=== PATIENT | female | born 1950 | race Hispanic/Latino ===

== ENCOUNTER 2023-02-11 07:04 | Inpatient (IN) | payer MEDICARE, OTHER ==
[~2023-02-11] VITALS: Ht 142.2 cm; Wt 63.5 kg
[~2023-02-11 07:04] MED LIST: AUGMENTIN 500-1 EACH PO; BACLOFEN10 MG PO; NAPROXEN250 MG PO
[2023-02-11] MEDS ORDERED: SODIUM CHLORIDE 0.9% 1000ML 1,000 ML IV STA ×2 (07:26)
[2023-02-11] MEDS ORDERED: ONDANSETRON HCL INJ 2MG/ML 2ML 2 MG/ML VIAL IV STA (07:26)
[2023-02-11] MEDS ORDERED: DIATRIZOATE MEGL/DIATRIZOA SOD 30 ML BTL PO ONE (07:47)
[2023-02-11 08:06] LABS: BASOPHILS % 0.2 % (0.0-1.0); EOSINOPHILS % 0.3 % (0.0-6.0); HEMATOCRIT 45.2 % (34.2-44.1); HEMOGLOBIN 15.6 g/dL (12.0-16.0); LYMPHOCYTES # (AUTO) 0.3 (1.0-3.2); LYMPHOCYTES % 1.9 % (18.0-39.1); MEAN CORPUSCULAR HEMOGLOBIN 30.3 pg (28-32); MEAN CORPUSCULAR HGB CONC 34.5 g/dL (31-35); MEAN CORPUSCULAR VOLUME 87.8 fL (81-99); MONOCYTES # (AUTO) 0.2 (0.2-0.8); MONOCYTES % 1.4 % (4.4-11.3); NEUTROPHILS # (AUTO) 14.5 (2.1-6.9); NEUTROPHILS % 95.9 % (38.7-80.0); PLATELET COUNT 327 x10e3/uL (140-360); RED BLOOD COUNT 5.15 x10e6/uL (3.6-5.1); WHITE BLOOD COUNT 15.07 x10e3/uL (4.8-10.8)
[2023-02-11 08:42] LABS: ALANINE AMINOTRANSFERASE 17 IU/L (0-55); ALBUMIN 4.6 g/dL (3.5-5.0); ALBUMIN/GLOBULIN RATIO 1.1 (0.8-2.0); ALKALINE PHOSPHATASE 113 IU/L (40-150); ANION GAP 15.9 mmol/L (8-16); BLOOD UREA NITROGEN 22 mg/dL (7-26); BUN/CREATININE RATIO 27 (6-25); CALCIUM 9.8 mg/dL (8.4-10.2); CARBON DIOXIDE 20 mmol/L (22-29); CHLORIDE 104 mmol/L (98-107); CREATININE, SERUM 0.82 mg/dL (0.57-1.11); GLUCOSE 174 mg/dL (74-118); MAGNESIUM 1.9 MG/DL (1.3-2.1); POTASSIUM 3.9 mmol/L (3.5-5.1); SODIUM 136 mmol/L (136-145)
[2023-02-11] MEDS ORDERED: PIPERACILLIN/TAZOBACTAM 3.375 GM VIAL ONE (08:44)
[2023-02-11 08:54] LABS: INR 0.92; PROTHROMBIN TIME 12.9 seconds (11.9-14.5)
[2023-02-11 08:55] LABS: PARTIAL THROMBOPLASTIN TIME 29.1 seconds (23.8-35.5)
[2023-02-11] MEDS ORDERED: IOPAMIDOL 370 MG/ML 100 ML INFUS..BTL INJ ONE (09:24)
[2023-02-11 10:21] LABS: CLARITY,URINE CLEAR (CLEAR); COLOR,URINE YELLOW (YELLOW)
[2023-02-11 10:29] LABS: KETONES,URINE NEGATIVE (NEGATIVE); LEUKOCYTE ESTERASE ,URINE TRACE (NEGATIVE); NITRITE,URINE NEGATIVE (NEGATIVE); PROTEIN,URINE DIPSTICK NEGATIVE (NEGATIVE); URINE UROBILINOGEN 0.2 mg/dL (0.2 - 1)
[2023-02-11 10:48] LABS: BACTERIA,URINE FEW /HPF; EPITHELIAL CELLS,URINE FEW /LPF; RBC,URINE 0-5 /HPF (0-5); WBC,URINE (MAN) 0-5 /HPF (0-5)
[2023-02-11] MEDS ORDERED: Morphine 2mg Syringe 2 MG/ML SYR IV PRN (11:00)
[2023-02-11] MEDS ORDERED: ONDANSETRON HCL INJ 2MG/ML 2ML 2 MG/ML VIAL IV PRN (11:00)
[2023-02-11] MEDS: ONDANSETRON HCL INJ 2MG/ML 2ML 2 MG/ML VIAL IV PRN (12:37)
[2023-02-11] MEDS: SODIUM CHLORIDE 0.9% 1000ML 1,000 ML IV SCH (12:38)
[2023-02-11] MEDS: METRONIDAZOLE 500MG/NS 100ML 100 ML IV SCH ×2 (12:39→17:33)
[2023-02-11 13:10] LABS: CREATINE KINASE 56 IU/L (29-168)
[2023-02-11 14:01] VITALS: BP 133/67; PULSE 89; RESP 18; TEMP 97.6; O2SAT 97
[2023-02-11 14:14] VITALS: BP 133/67; PULSE 89; RESP 18; TEMP 97.6; O2SAT 97
[2023-02-11 16:21] VITALS: BP 114/51; PULSE 87; RESP 20; TEMP 98.5; O2SAT 97
[2023-02-11] MEDS ORDERED: OS-CAL 500+D T1 EACH PO (16:31)
[2023-02-11] MEDS ORDERED: ATORVASTATIN CA10 MG PO (16:31)
[2023-02-11] MEDS ORDERED: ALENDRONATE SOD70 MG PO (16:31)
[2023-02-11 20:00] VITALS: BP 121/56; PULSE 91; RESP 20; TEMP 98.6; O2SAT 96
[2023-02-12] VITALS (8 sets, daily range): BP systolic 108–132; BP diastolic 52–70; PULSE 70–88; RESP 16–20; TEMP 97.9–98.7; O2SAT 96–98
[2023-02-12] MEDS: METRONIDAZOLE 500MG/NS 100ML 100 ML IV SCH ×4 (01:09→17:31)
[2023-02-12] MEDS: SODIUM CHLORIDE 0.9% 1000ML 1,000 ML IV SCH ×2 (01:09→04:10)
[2023-02-12 06:12] LABS: BASOPHILS % 0.2 % (0.0-1.0); EOSINOPHILS # (AUTO) 0.2 (0.0-0.4); EOSINOPHILS % 3.2 % (0.0-6.0); HEMATOCRIT 33.6 % (34.2-44.1); HEMOGLOBIN 11.1 g/dL (12.0-16.0); LYMPHOCYTES # (AUTO) 0.6 (1.0-3.2); LYMPHOCYTES % 12.7 % (18.0-39.1); MEAN CORPUSCULAR VOLUME 90.8 fL (81-99); MONOCYTES # (AUTO) 0.3 (0.2-0.8); MONOCYTES % 6.7 % (4.4-11.3); NEUTROPHILS # (AUTO) 3.8 (2.1-6.9); NEUTROPHILS % 76.8 % (38.7-80.0); PLATELET COUNT 217 x10e3/uL (140-360); RED CELL DISTRIBUTION WIDTH 13.5 % (11.7-14.4); WHITE BLOOD COUNT 4.96 x10e3/uL (4.8-10.8)
[2023-02-12 06:40] LABS: ALBUMIN 3.1 g/dL (3.5-5.0); ALBUMIN/GLOBULIN RATIO 1.2 (0.8-2.0); ANION GAP 10.9 mmol/L (8-16); CALCIUM 7.6 mg/dL (8.4-10.2); CREATININE, SERUM 0.74 mg/dL (0.57-1.11)
[2023-02-12 07:08] LABS: POTASSIUM 2.9 mmol/L (3.5-5.1)
[2023-02-12] MEDS ORDERED: IOPAMIDOL 370 MG/ML 100 ML INFUS..BTL INJ ONE (08:18)
[2023-02-12] MEDS ORDERED: SODIUM CHLORIDE 0.9% 100 ML ONE (08:18)
[2023-02-12] MEDS ORDERED: POTASSIUM CHLORIDE 10MEQ EA PO ONE (08:30)
[2023-02-12] MEDS ORDERED: ACETAMINOPHEN 325 MG TAB PO PRN (09:00)
[2023-02-12] MEDS: POTASSIUM CHLORIDE 40 MEQ in SODIUM CHLORIDE 0.45% 1,000 ML IV SCH (10:45)
[2023-02-12 14:54] LABS: ANION GAP 9.6 mmol/L (8-16); CALCIUM 7.8 mg/dL (8.4-10.2); CREATININE, SERUM 0.65 mg/dL (0.57-1.11); MAGNESIUM 1.8 MG/DL (1.3-2.1); PHOSPHORUS 1.7 MG/DL (2.3-4.7); POTASSIUM 3.6 mmol/L (3.5-5.1)
[2023-02-12] MEDS: ONDANSETRON HCL INJ 2MG/ML 2ML 2 MG/ML VIAL IV PRN (15:23)
[2023-02-13] VITALS (7 sets, daily range): BP systolic 111–133; BP diastolic 60–70; PULSE 75–80; RESP 16–18; TEMP 97.6–98.1; O2SAT 97–99
[2023-02-13] MEDS: METRONIDAZOLE 500MG/NS 100ML 100 ML IV SCH ×4 (00:47→17:21)
[2023-02-13] MEDS: POTASSIUM CHLORIDE 40 MEQ in SODIUM CHLORIDE 0.45% 1,000 ML IV SCH ×2 (05:53→05:54)
[2023-02-13 06:21] LABS: BASOPHILS % 0.5 % (0.0-1.0); EOSINOPHILS # (AUTO) 0.3 (0.0-0.4); EOSINOPHILS % 6.5 % (0.0-6.0); HEMATOCRIT 32.8 % (34.2-44.1); HEMOGLOBIN 11.1 g/dL (12.0-16.0); LYMPHOCYTES # (AUTO) 0.7 (1.0-3.2); LYMPHOCYTES % 18.3 % (18.0-39.1); MEAN CORPUSCULAR HEMOGLOBIN 30.2 pg (28-32); MEAN CORPUSCULAR HGB CONC 33.8 g/dL (31-35); MEAN CORPUSCULAR VOLUME 89.1 fL (81-99); MONOCYTES # (AUTO) 0.5 (0.2-0.8); MONOCYTES % 11.3 % (4.4-11.3); NEUTROPHILS # (AUTO) 2.5 (2.1-6.9); NEUTROPHILS % 63.1 % (38.7-80.0); PLATELET COUNT 230 x10e3/uL (140-360); RED BLOOD COUNT 3.68 x10e6/uL (3.6-5.1); RED CELL DISTRIBUTION WIDTH 13.5 % (11.7-14.4); WHITE BLOOD COUNT 3.99 x10e3/uL (4.8-10.8)
[2023-02-13 06:54] LABS: ALBUMIN 3.2 g/dL (3.5-5.0); ALBUMIN/GLOBULIN RATIO 1.3 (0.8-2.0); ANION GAP 10.8 mmol/L (8-16); CALCIUM 7.8 mg/dL (8.4-10.2); CREATININE, SERUM 0.71 mg/dL (0.57-1.11); MAGNESIUM 1.8 MG/DL (1.3-2.1); PHOSPHORUS 1.5 MG/DL (2.3-4.7); POTASSIUM 3.8 mmol/L (3.5-5.1)
[2023-02-13 09:12] LABS: WBC,FECAL (FECAL LACTOFERRIN) NEGATIVE (NEGATIVE)
[2023-02-13] MEDS ORDERED: MAGNESIUM SULFATE 2GM/50ML IV ONE (09:45)
[2023-02-13] MEDS ORDERED: MAGNESIUM SULFATE 2GM/50ML 50 ML IV ONE (10:00)
[2023-02-13 10:15] LABS: THYROID STIMULATING HORMONE 3.637 uIU/mL (0.350-4.940)
[2023-02-13] MEDS ORDERED: POTASSIUM PHOSPHATE 20 MM in SODIUM CHLORIDE 0.9% 250ML 250 ML IV SCH (12:00)
[2023-02-13] MEDS ORDERED: CYANOCOBALAMIN INJ 1,000 MCG/ML VIAL IM ONE (22:30)
[2023-02-13 22:37] LABS: % IRON SATURATION 21 % (15-50); IRON 54 ug/dL (50-170); TOTAL IRON BINDING CAPACITY 256 ug/dL (261-478); TRANSFERRIN 183 mg/dL (180-382)
[2023-02-14] VITALS (8 sets, daily range): BP systolic 122–157; BP diastolic 63–78; PULSE 78–84; RESP 16–20; TEMP 97.7–98.6; O2SAT 98–99
[2023-02-14] MEDS: METRONIDAZOLE 500MG/NS 100ML 100 ML IV SCH ×4 (00:11→21:58)
[2023-02-14] MEDS: POTASSIUM CHLORIDE 40 MEQ in SODIUM CHLORIDE 0.45% 1,000 ML IV SCH ×4 (05:40→21:59)
[2023-02-14 06:16] LABS: ANION GAP 10.9 mmol/L (8-16); CALCIUM 7.9 mg/dL (8.4-10.2); CREATININE, SERUM 0.71 mg/dL (0.57-1.11); POTASSIUM 3.9 mmol/L (3.5-5.1)
[2023-02-14] MEDS ORDERED: CYANOCOBALAMIN INJ 1,000 MCG/ML VIAL IM SCH (09:00)
[2023-02-14] MEDS: FOLIC ACID 1 MG TAB PO SCH (09:07)
[2023-02-14] MEDS: CYANOCOBALAMIN INJ 1,000 MCG/ML VIAL IM SCH ×2 (09:15→09:34)
[2023-02-15] VITALS: BP 131/67; PULSE 72; RESP 18; TEMP 98.7; O2SAT 99
[2023-02-15 04:00] VITALS: BP 129/62; PULSE 72; RESP 18; TEMP 98.2; O2SAT 98
[2023-02-15] MEDS: METRONIDAZOLE 500MG/NS 100ML 100 ML IV SCH (04:51)
[2023-02-15 07:22] LABS: CALCIUM 8.8 mg/dL (8.4-10.2); CREATININE, SERUM 0.7 mg/dL (0.57-1.11)
[2023-02-15 07:39] VITALS: BP 146/73; PULSE 70; RESP 19; TEMP 98.5; O2SAT 98
[2023-02-15] MEDS: CYANOCOBALAMIN INJ 1,000 MCG/ML VIAL IM SCH (10:32)
[2023-02-15] MEDS: FOLIC ACID 1 MG TAB PO SCH (10:33)
[2023-02-15 11:30] VITALS: BP 127/74; PULSE 74; RESP 17; TEMP 97.8; O2SAT 99
[2023-02-15] MEDS ORDERED: CYANOCOBALAMIN INJ 1,000 MCG/ML VIAL IM ONE (12:00)
== END 2023-02-15 11:36 | disposition home or self-care (01) | DRG 872 ==
LOC: ER 07:16 → ERHOLD 11:21 → MED/SURG3 13:27
PROVIDERS: ADMIT Internal Medicine; ATTEND Internal Medicine
DX: A41.9 Sepsis, unspecified organism (principal); E87.20 Acidosis, unspecified; R65.20 Severe sepsis without septic shock; K52.9 Noninfective gastroenteritis and colitis, unspecified; E86.0 Dehydration; E53.8 Deficiency of other specified B group vitamins; E87.6 Hypokalemia; M81.0 Age-related osteoporosis without current pathological fracture; E78.5 Hyperlipidemia, unspecified; Z20.822 Contact with and (suspected) exposure to COVID-19
CPT/HCPCS: 36415; 71045; 74174; 74177; 80048; 80053; 81001; 82550; 82607; 82746; 83036; 83540; 83605; 83630; 83735; 84100; 84443; 84466; 84484; 85025; 85045; 85610; 85730; 87040; 87045; 87086; 87177; 87324; 87449; 93005; 99284; J0696; J2405; J2543; J3420; J3475; J3480; J7030; J7050; Q9963; Q9967; U0002